=== PATIENT | female | born 1945 | race Caucasian/White ===

== ENCOUNTER → 2017-11-02 | Outpatient (CLI) | payer MEDICARE, OTHER ==
[~2017-11-02] MED LIST: ACE325 PO; IBU800 PO; PER PO
--- NOTE | 2017-11-02 12:49 | RADIOLOGY IMAGING REPORT ---
[facility] PATIENT NAME: Bushra Stevens : 1945 MR: [id number] V: [id number] EXAM DATE: ORDERING PHYSICIAN: ARSENIO JIMENEZ TECHNOLOGIST: Location: [facility] Patient: Bushra Stevens : 1945 Visit/Account:[id number] Date of Sevice: 11/02/2017 Exam type: 3 views of the left ribs History: Left-sided rib pain Comparison: 02/17/2017. Findings: Both lungs are well-expanded and clear. There is no focal consolidation, pleural effusion or pneumot horax. Heart size is normal. The osseous structures demonstrate no acute displaced rib fractures. There may be some subtle healed fractures of the left anterior 8th and 9th ribs. Patient is osteopenic. IMPRESSION: 1. No acute cardiopulmonary disease. 2. No definite acute displaced left-sided rib fractures. There may be subtle healed fractures of th e left anterior 8th and 9th ribs. Report Dictated By: Aiden Ramos MD at 11/02/2017 12:39 PM Report E-Signed By: Aiden Ramos MD at 11/02/2017 12:45 PM WSN:[email or web address]
--- NOTE | 2017-11-02 12:50 | RADIOLOGY IMAGING REPORT ---
[place] [facility] [place] Bushra Stevens : 1945 MR: [id number] V: [id number] EXAM DATE: ORDERING PHYSICIAN: ARSENIO JIMENEZ TECHNOLOGIST: Location: [facility] Patient: Bushra Stevens : 1945 Visit/Account:[id number] Date of Sevice: 11/02/2017 Exam type: SHOULDER MIN 2 VIEWS LEFT History: Left shoulder pain Comparison: None. Findings: There is no acute fracture or dislocation of the left shoulder. AC joint aligns appropriately. Acro mion down slopes posteriorly. Patient is osteopenic. Visualized ribs are intact. IMPRESSION: 1. No acute fracture or dislocation of the left shoulder. Report Dictated By: Aiden Ramos MD at 11/02/2017 12:45 PM Report E-Signed By: Aiden Ramos MD at 11/02/2017 12:47 PM WSN:[email or web address]
== END ==
LOC: RAD 11:56
PROVIDERS: ATTEND Family Medicine
DX: M85.812 Other specified disorders of bone density and structure, left shoulder (principal)
CPT/HCPCS: 71100

== ENCOUNTER → 2017-11-10 | Outpatient (CLI) | payer MEDICARE, OTHER ==
[2017-11-10 13:00] LABS: LDL CHOLESTEROL 68 mg/dl
== END ==
LOC: LAB 12:20
PROVIDERS: ATTEND Family Medicine
DX: E03.9 Hypothyroidism, unspecified (principal); E78.5 Hyperlipidemia, unspecified
CPT/HCPCS: 36415; 82040; 82247; 82310; 82374; 82435; 82465; 82565; 82947; 83718; 84075; 84132; 84155; 84295; 84443; 84450; 84460; 84478; 84520

== ENCOUNTER → 2017-11-17 | Outpatient (CLI) | payer MEDICARE, OTHER ==
--- NOTE | 2017-11-17 13:32 | RADIOLOGY IMAGING REPORT ---
FACILITY: [facility] [place] PATIENT NAME: Bushra Stevens : 1945 MR: [id number] V: [id number] EXAM DATE: ORDERING PHYSICIAN: ARSENIO JIMENEZ TECHNOLOGIST: [place] [facility] [place] Bushra Stevens : 1945 Visit/Account:[id number] Date of Sevice: 11/17/2017 DEXA Scan Clinical history: Osteoporosis, left-sided rib pain from fall two weeks ago. Comparison: DEXA scan from 08/04/2016. LUMBAR SPINE: The bone mineral density (BMD) measured from L1-L4 correlates with a Z-score of -1.3 and a T-score of -2.9 which is osteoporosis as defined by the World Health Organization. The corresponding risk of f racture in the lumbar spine is 68 times increased compared with a young adult reference population. This value has increased by 3.5 % since the prior study. More than 5% change is considered significa nt. HIP: Bone mineral density (BMD) measured in the LEFT total hip region correlates with a Z-score by 0.9 and a T-score of -2.3 which is osteopenia as defined by the World Health Organization. The correspondin g risk of fracture in the hip is 4-6 times increased compared to a young adult reference population. This value has increased by 3.9 % since the prior study. More than 5% change is considered significa nt. T score left femoral neck -2.5 Bone mineral density (BMD) measured in the Femoral Neck region measures 0.695 g/cm?. IMPRESSION: 1. Lumbar spine: Osteoporosis. There has been 3.5% increase in the bone mineral density since the p revious exam. 2. Left Total Hip: Osteopenia. There has been 3.9% increase in the bone mineral density since the p revious exam. 3. Femoral Neck: Bone Mineral Density is 0.695 g/cm? . T score the left femoral neck is -2.5 which is consistent with osteoporosis The next DEXA scan of this patient should include the following sites: L1-L4 and the left hip. FRAX? WHO Fracture Risk Assessment Tool link: <http://www.shef.ac.uk/FRAX/tool.jsp?locationValue=9> PLEASE NOTE: 1) The World Health Organization defines low BMD as follows: T-score Normal > -1 Osteopenia < -1 and > -2.5 Osteoporosis < -2.5 without fractures Established osteoporosis < -2.5 with fractures 2) In general, you may wish to consider: Diagnosis Treatment Follow-up DEXA Normal BMD Prevention 2-3 years Osteopenia Prevention/therapy 1-2 years Osteoporosis Therapy Yearly 3) Fracture risk estimated from the T-score is more accurate for vertebral fractures (often spontane ous) than for hip fractures. Report Dictated By: Aiyana Davis MD at 11/17/2017 1:25 PM Report E-Signed By: Aiyana Davis MD at 11/17/2017 1:27 PM LINDSAYN:SOLOMON
== END ==
LOC: RAD 12:51
PROVIDERS: ATTEND Family Medicine
DX: Z13.820 Encounter for screening for osteoporosis (principal); M81.0 Age-related osteoporosis without current pathological fracture; M81.8 Other osteoporosis without current pathological fracture
CPT/HCPCS: 77080

== ENCOUNTER → 2018-06-23 | Outpatient (CLI) | payer MEDICARE, OTHER ==
[2018-06-23 13:09] LABS: LDL CHOLESTEROL 75 mg/dl
== END ==
LOC: LAB 11:30
PROVIDERS: ATTEND Family Medicine
DX: E78.5 Hyperlipidemia, unspecified (principal); E03.9 Hypothyroidism, unspecified
CPT/HCPCS: 36415; 82040; 82247; 82310; 82374; 82435; 82465; 82565; 82947; 83718; 84075; 84132; 84155; 84295; 84443; 84450; 84460; 84478; 84520

== ENCOUNTER → 2019-03-08 | Outpatient (CLI) | payer MEDICARE, OTHER ==
[2019-03-08 09:54] LABS: LDL CHOLESTEROL 78 mg/dl
== END ==
LOC: LAB 08:28
PROVIDERS: ATTEND Family Medicine
DX: E03.9 Hypothyroidism, unspecified (principal); E78.5 Hyperlipidemia, unspecified; R73.01 Impaired fasting glucose
CPT/HCPCS: 36415; 82040; 82247; 82310; 82374; 82435; 82465; 82565; 82947; 83036; 83718; 84075; 84132; 84155; 84295; 84443; 84450; 84460; 84478; 84520